=== PATIENT | female | born 1990 | race Caucasian/White ===

== ENCOUNTER → 2016-08-14 18:02 | Observation (INO) ==
--- NOTE | 2016-08-14 15:33 | OB/GYN Progress Note ---
Date of Encounter: 08/14/16 Time of Encounter: 15:28 - Assessment and Plan (1) 33 weeks gestation of Current Visit: Yes Status: Acute Discussed patient with Dr. Montgomery. BP WNL on unit. Pt denies contractions, vaginal bleeding or leaking of fluid. Pt states good movement. Will obtain [facility] labs for r/o related cause of chest pain. All labs negative. Will discharge to home Discharged home with instructions on when to call provider and return to triage for evaluation. (2) Chest pain at rest Current Visit: Yes Status: Acute STAT EKG and troponin obtained. 1558- EKG unconfirmed report shows normal sinus rhythm and normal EKG Troponin negative. Pt states all chest pain, pressure and arm pain went away soon after admission. (3) Uterine contractions during Current Visit: Yes Status: Acute Pt with contractions on monitor. Pt states does not feel contractions. Serial vaginal exams show cervix 1/long and remained unchanged. Subjective - Subjective Interval history: Patient brought to the unit from emergency department patient stated according to emergency department she felt chest congestion in her chest and was noted to have an elevated BP. Upon arrival to unit, I assessed patient and asked why patient presented to the hospital patient states she has felt chest pain and pressure on all basins arising this morning with radiation down to her left arm when she awoke she says she rated the pain 10 out of 10 however it did decrease but has continued with chest pain and pressure with continuing down her left arm. Patient states she has had a cardiac workup in the past with an echocardiogram and has been told she has an abnormal heartbeat. Unable to locate echocardiogram from 2011. Patient reports good movement, denies any contractions leaking of fluid, vaginal bleeding, or contractions Antepartum ROS: movement normal, no loss of fluid, no vaginal bleeding, no contractions Objective - Vital Signs Vital Signs: BP 117/85 - Exam Auscultation: bilateral: normal Abdomen: Present: normal appearance, soft, gravid Cervical dilation: 1 Cervix effacement: 25 station: -3
[2016-08-14 15:43] LABS: Basophils % 0.2 %; Eosinophils % 0.4 %; Hematocrit 33.6 % (35.3-44.9); Hemoglobin 11.4 g/dL (11.5-15.4); Immature Granulocytes % 0.5 % (0-4); Immature Platelets 5.8 % (1.1-6.1); Lymphocytes # 2.2 K/mcL (0.6-4.6); Lymphocytes % 22.4 %; Mean Corpuscular HGB Conc 33.9 g/dL (31.6-35.5); Mean Corpuscular Volume 79.6 fL (83.0-100.0); Mean Platelet Volume 10.2 fL (9.4-12.4); Monocytes # 0.7 K/mcL (0.0-1.3); Neutrophils # 6.7 K/mcL (1.6-8.9); Platelet Count 281 K/mcL (140-400); Red Blood Count 4.22 M/mcL (3.82-4.97); Red Cell Distribution Width 13.8 % (11.5-14.5); Segmented Neutrophils % 69.5 %
[2016-08-14 15:57] LABS: Alanine Aminotransferase 14 Units/L (0-55); Aspartate Amino Transferase 19 Units/L (5-34); BUN/Creatinine Ratio 10 (6-26); Blood Urea Nitrogen 6 mg/dL (7-20); Lactate Dehydrogenase 170 Units/L (159-327); Uric Acid 4.3 mg/dL (2.6-6.0); eGFR For African Americans > 60 (> 60); eGFR For Non-African Americans > 60 (> 60)
[~2016-08-14 18:02] MED LIST: Ringers Solution, Lactated 1,000 ML ONE
--- NOTE | 2016-08-15 17:42 | Electrocardiograph Report ---
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
== END | disposition home or self-care (01) ==
LOC: 1NENULAB
PROVIDERS: ADMIT Obstetrics & Gynecology; ATTEND Obstetrics & Gynecology

== ENCOUNTER 2016-09-23 15:23 | Observation (INO) ==
[2016-09-23 15:54] LABS: Basophils % 0.2 %; Eosinophils % 0.5 %; Hematocrit 36.2 % (35.3-44.9); Hemoglobin 12.4 g/dL (11.5-15.4); Immature Granulocytes % 0.4 % (0-4); Lymphocytes # 1.9 K/mcL (0.6-4.6); Lymphocytes % 23.6 %; Mean Corpuscular HGB Conc 34.3 g/dL (31.6-35.5); Mean Corpuscular Hemoglobin 27.3 pg (28.0-33.3); Mean Corpuscular Volume 79.7 fL (83.0-100.0); Mean Platelet Volume 10.9 fL (9.4-12.4); Monocytes # 0.6 K/mcL (0.0-1.3); Monocytes % 6.9 %; Neutrophils # 5.6 K/mcL (1.6-8.9); Platelet Count 258 K/mcL (140-400); Red Blood Count 4.54 M/mcL (3.82-4.97); Red Cell Distribution Width 14.8 % (11.5-14.5); Segmented Neutrophils % 68.4 %
[2016-09-23 16:06] LABS: Alanine Aminotransferase 13 Units/L (0-55); Aspartate Amino Transferase 20 Units/L (5-34); BUN/Creatinine Ratio 12 (6-26); Blood Urea Nitrogen 8 mg/dL (7-20); Lactate Dehydrogenase 178 Units/L (159-327); Uric Acid 5.4 mg/dL (2.6-6.0); eGFR For African Americans > 60 (> 60); eGFR For Non-African Americans > 60 (> 60)
[2016-09-23 16:50] LABS: Creatinine,Urine 14 mg/dL
[2016-09-23 16:51] LABS: Protein/Creatinine Ratio,Urine < 0.50 mg/mg (0-0.20)
--- NOTE | 2016-09-23 17:08 | Discharge Summary ---
Date of Encounter: 09/23/16 Time of Encounter: 17:10 - Discharge Diagnosis (1) 39 weeks gestation of Priority: Primary Status: Acute Comments: Patient sent over from office at 39 weeks and 3 days gestation for PIH evaluation following increase in blood pressure in office this afternoon. Patient states positive movement. She denies headache, visual disturbances, epigastric pain, vaginal bleeding, LOF, and cramping/contractions. PIH labs - wnl Serial blood pressures - normotensive NST - category I reactive NST FHTs 140s with moderate variability and 15x15 accels no decels no contractions Discharge home with labor precautions and PIH precautions F/U for scheduled IOL on Thursday with Dr Mann. POC per consult with Dr Patino - Discharge Medications Home Medications: Vits #90/Iron Fum/FA [ Formula Tablet] 1 each PO DAILY [History] Albuterol Sulfate [Albuterol Inhaler] 2 puff IN PRN PRN 09/23/16 [History] Allergies/Adverse Reactions: Allergies Amoxicillin Adverse Reaction (Verified 09/23/16 15:46) Nausea Data Procedures and tests throughout hospitalization: Laboratory Tests 09/23/16 09/23/16 09/23/16 15:42 15:42 15:42 WBC 8.2 RBC 4.54 Hgb 12.4 Hct 36.2 MCV 79.7 L MCH 27.3 L MCHC 34.3 RDW 14.8 H Plt Count 258 MPV 10.9 Immature Gran % 0.4 Seg Neutrophils % 68.4 Lymphocytes % 23.6 Monocytes % 6.9 Eosinophils % 0.5 Basophils % 0.2 Neutrophils # 5.6 Lymphocytes # 1.9 Monocytes # 0.6 Eosinophils # 0.0 Basophils # 0.0 BUN 8 Creatinine 0.69 Est GFR ( Amer) > 60 Est GFR (Non-Af Amer) > 60 BUN/Creatinine Ratio 12 Uric Acid 5.4 AST 20 ALT 13 Lactate Dehydrogenase 178 Urine Creatinine 14 Protein/Creatinin Ratio < 0.50 H Urine Total Protein < 7 Labs on day of discharge: Labs from last 24 hours 09/23/16 09/23/16 09/23/16 15:42 15:42 15:42 WBC 8.2 RBC 4.54 Hgb 12.4 Hct 36.2 MCV 79.7 L MCH 27.3 L MCHC 34.3 RDW 14.8 H Plt Count 258 MPV 10.9 Immature Gran % 0.4 Seg Neutrophils % 68.4 Lymphocytes % 23.6 Monocytes % 6.9 Eosinophils % 0.5 Basophils % 0.2 Neutrophils # 5.6 Lymphocytes # 1.9 Monocytes # 0.6 Eosinophils # 0.0 Basophils # 0.0 BUN 8 Creatinine 0.69 Est GFR ( Amer) > 60 Est GFR (Non-Af Amer) > 60 BUN/Creatinine Ratio 12 Uric Acid 5.4 AST 20 ALT 13 Lactate Dehydrogenase 178 Urine Creatinine 14 Protein/Creatinin Ratio < 0.50 H Urine Total Protein < 7 Date of admission: 09/23/16 15:23 Primary care physician: Sary Vazquez DO Discharging clinician: Sharyn Jones Anticipated date of discharge: 09/23/16 - Patient Status Disposition: Home, Self-Care Condition: Good Functional capacity at discharge: independent ambulation Overall status at discharge: patient is back to baseline - Discharge Instructions Follow Up With: Sary Vazquez DO [Primary Care Provider] - Mary Mann DO [Partnered Physician] - - Diet and Activity Activity: increase activity as tolerated Diet: regular diet Hospital Course [employer] Time Attestation: Total time spent providing and/or coordinating discharge services: Time Spent: Less than 30 minutes Exam - Constitutional General appearance IM: cooperative, A&O X 3, pleasant, no acute distress - Respiratory Respiratory exam: Present: CTAB - Cardiovascular Cardiovascular exam IM: Present: RRR, +S1, +S2 - GI/Abdominal GI/Abdominal exam IM: normal bowel sounds, soft - Rectal Rectal exam: deferred - Additional comments: Gravid, non-tender - Extremities Exam Extremities exam IM: Present: normal capillary refill, normal inspection, radial pulses palpable and symetrical - Neurological Exam Neurological exam: alert, oriented X3 - VTE Reasons for not Prescribing Prophylaxis: Treatment not Indicated - Low risk for VTE
== END 2016-09-23 17:08 | disposition home or self-care (01) ==
LOC: 1NENULAB
PROVIDERS: ADMIT Student in an Organized Health Care Education/Training Program; ATTEND Student in an Organized Health Care Education/Training Program

== ENCOUNTER 2016-09-24 18:54 | Inpatient (IN) ==
--- NOTE | 2016-09-24 19:07 | OB/GYN History & Physical ---
Date of Encounter: 09/24/16 Time of Encounter: 19:01 Assessment and Plan (1) 39 weeks gestation of Current visit: Yes Status: Acute (2) Rubella non-immune status, antepartum Current visit: Yes Status: Acute Offer vaccine . (3) Spontaneous onset of labor Current visit: Yes Status: Acute SVE on arrival 3cm. Recheck after 1 hour 4cm/90%-1 with BBOW. Admit for labor. GBS negative. Nubain x 1 now for pain. Epidural when able. Will augment with AROM if needed. Anticipate . History of Present Illness Chief complaint: contractions HPI: Ms. Sanon is a 26 year old female, who is at 39w4d, who presents to L&D triage reporting contractions that started around 1500 this afternoon. She reports that contractions are approximately 4 minutes apart lasting 1-2 minutes at this time. She reports that she was seen yesterday here for a PIH evaluation after being seen in the office then, later, was sent home. Patient denies any other problems with this . Patient denies any loss of fluid vaginally up until this time. Reports good FM today. Denies any headache, blurred vision, RUQ pain at this time. Blood type A positive. Rubella and varicella non-immune. HIV, treponema, and hepatitis B sag negative. GBS negative. Pt has a normal quad screening. Glucola 150. 3 hour GTT normal. Past Med Surg Social Fam HX - Past Medical History Medical history: asthma, hyperlipidemia Psychiatric history: no psych history - Past Surgical History Surgical History: other - Social History Smoking Status: Never smoker Smokeless Tobacco Status: No Alcohol use: none, unknown Drug use: none - Family History Mother Family Member Ethnicity: Non- Living Status: Still Living Hx Family Cardiac Disorders: Yes (high blood pressure) Hx Family Respiratory Disorders: No Hx Family Cancer: No Hx Family GI Disorders: No Hx Family Endocrine Disorder: Yes (diabetes) Hx Family Neuromuscular Disorders: No Hx Family Neurologic Disorders: No Hx Family HEENT Disorders: No Hx Family Autoimmune Disorders: No Obstetrical History - Pregnancies : 2 Para: 1 Term: 1 : 0 Ab's: 0 Livin - History/Complications History/Complications: Denies any complications with this . Although was seen for PIH evaluation yesterday and sent home. Medications and Allergies Vits #90/Iron Fum/FA [ Formula Tablet] 1 each PO DAILY [History] Albuterol Sulfate [Albuterol Inhaler] 2 puff IN PRN PRN 09/23/16 [History] Allergies Amoxicillin Adverse Reaction (Verified 09/23/16 15:46) Nausea Review of System OB - Constitutional Constitutional ROS IM: as per HPI, no chills, no fever(s) - Gastrointestinal Gastrointestinal: as per HPI - Genitourinary Genitourinary: as per HPI, no abnormal vaginal bleeding, no vaginal discharge Exam - Constitutional Constitutional: well developed, well nourished, mild distress - Neck Neck exam: full ROM - Lungs Respiratory exam: CTAB - Cardiovascular Cardiovascular exam: RRR, +S1, +S2 - Breasts Breast: bilateral: normal - Abdomen Abdomen: Present: gravid, non tender - Extremities Extremities exam: full ROM, normal capillary refill, normal inspection - Vulva Vulva: bilateral: normal - Vagina Vagina: Present: normal moisture - Cervix Dilation: 3 Effacement: 90 Station: -1 Results All other labs normal.
[2016-09-24] MEDS ORDERED: Naloxone 0.4 MG/ML INJ IVP PRN (19:51)
[2016-09-24] MEDS ORDERED: Famotidine 20 MG/2 ML VIAL IVP PRN (19:51)
[2016-09-24] MEDS ORDERED: Ondansetron 4 MG/2 ML VIAL IVP PRN (19:51)
[2016-09-24] MEDS ORDERED: *HR* Nalbuphine 20 MG/ML AMPUL IVP PRN (19:53)
[2016-09-24] MEDS ORDERED: *HR* Nalbuphine 20 MG/ML AMPUL ONE (19:53)
[2016-09-24] MEDS ORDERED: Ringers Solution, Lactated 1,000 ML ONE ×2 (19:53→21:24)
[2016-09-24] MEDS ORDERED: Ringers Solution, Lactated 1,000 ML IVC SCH (20:00)
[2016-09-24] MEDS ORDERED: EPHEDrine 50 MG/ML VIAL IVP PRN (20:20)
[2016-09-24] MEDS ORDERED: Ringers Solution, Lactated 500 ML IVC ONE (20:20)
[2016-09-24] MEDS ORDERED: Epidural Premix (fent/bupiv) 0 ML EP ONE (20:22)
[2016-09-24] MEDS ORDERED: Epidural Premix (fent/bupiv) 110 ML EP SCH (20:30)
[2016-09-24 20:32] LABS: Basophils % 0.3 %; Eosinophils % 0.2 %; Hemoglobin 13.6 g/dL (11.5-15.4); Immature Granulocytes % 0.5 % (0-4); Lymphocytes # 3.1 K/mcL (0.6-4.6); Lymphocytes % 20.4 %; Mean Corpuscular Hemoglobin 27.1 pg (28.0-33.3); Mean Corpuscular Volume 79.8 fL (83.0-100.0); Mean Platelet Volume 11.3 fL (9.4-12.4); Monocytes % 6.9 %; Neutrophils # 10.8 K/mcL (1.6-8.9); Platelet Count 271 K/mcL (140-400); Red Blood Count 5.01 M/mcL (3.82-4.97); Red Cell Distribution Width 14.8 % (11.5-14.5); Segmented Neutrophils % 71.7 %
[2016-09-24 20:33] LABS: Basophils # 0.1 K/mcL (0.0-0.2)
[2016-09-24] MEDS ORDERED: Lidocaine 1% 20 ML MDV ONE (21:24)
[2016-09-24] MEDS ORDERED: Oxytocin 20 units/ LR 1000 mL 20 UNIT/1,000 ML BAG IVC ONE ×2 (21:26→23:19)
[2016-09-24] MEDS ORDERED: Ibuprofen 600 MG TABLET PO PRN (21:42)
--- NOTE | 2016-09-24 23:14 | OB/GYN Procedure Note ---
Delivery - Delivery Date: 09/24/16 Provider: Shima Montalvo Intrapartum events: precipitous labor- <3hr Delivery induction: none Delivery monitor: external FHT, external uterine, internal FHT Anesthesia: intravenous Estimated Blood Loss: 100 - (s) Infant A Delivery Date: 09/24/16 Infant Delivery Time: 21:33 Presentation: vertex Position: ROSHNI Route of delivery: Gender: Male Viability: Viable Pounds: 7 Ounces: 10 at 1 minute: 8 at 5 mins: 8 Shoulder Dystocia: not encountered Placenta: spontaneous Cord: 3 umbilical vessels - Repair Episiotomy: none Laceration Description: Superficial (Right labial) - Complications Delivery complications: none Delivery comments: The patient progressed rapidly from 3 cm to complete and pushing without regional anesthesia with a spontaneous vaginal delivery in the ROSHNI position of a vigorous male infant weighing 7 lbs. 4oz. with Apgars of 8 at 1 minute and 8 at 5 [address] was [address] on the maternal abdomen. The cord was clamped and cut after pulsations ceased. The placenta was delivered spontaneous and intact. Superficial right labial laceration was hemostatic and not repaired. No other lacerations noted. Estimated blood loss 100 mL, complications none. Umbilical cord was noted to be modestly short. - Disposition Mom disposition: stable in LDR disposition: stable in LDR
[2016-09-25] MEDS ORDERED: Measles/Mumps/Rubella Vacc 0.5 ML VIAL SQ PRN (00:27)
[2016-09-25] MEDS ORDERED: Oxytocin 20 units/ LR 1000 mL 20 UNIT/1,000 ML BAG IVC SCH (00:27)
[2016-09-25] MEDS ORDERED: Acetaminophen 325 MG TABLET PO PRN (00:27)
[2016-09-25 04:41] LABS: Basophils % 0.1 %; Hematocrit 35.8 % (35.3-44.9); Hemoglobin 12.2 g/dL (11.5-15.4); Immature Granulocytes % 0.4 % (0-4); Lymphocytes # 1.7 K/mcL (0.6-4.6); Mean Corpuscular HGB Conc 34.1 g/dL (31.6-35.5); Mean Corpuscular Hemoglobin 27.8 pg (28.0-33.3); Mean Corpuscular Volume 81.5 fL (83.0-100.0); Mean Platelet Volume 11.7 fL (9.4-12.4); Monocytes # 0.9 K/mcL (0.0-1.3); Monocytes % 5.4 %; Neutrophils # 14.6 K/mcL (1.6-8.9); Platelet Count 201 K/mcL (140-400); Red Blood Count 4.39 M/mcL (3.82-4.97); Red Cell Distribution Width 14.6 % (11.5-14.5); Segmented Neutrophils % 84.1 %
[2016-09-25] MEDS: Ibuprofen 600 MG TABLET PO PRN ×2 (08:30→20:38)
[2016-09-25] MEDS: Prenatal Vit/FA 1 EACH TABLET PO SCH (08:31)
--- NOTE | 2016-09-25 14:19 | OB/GYN Progress Note ---
Date of Encounter: 09/25/16 Time of Encounter: 14:17 - Assessment and Plan (1) Vaginal delivery Current Visit: Yes Status: Acute stable PPD #1. Continue current management. Anticipate D/C in AM Subjective - Subjective Interval history: Pt resting comfortable in her room. Pain well managed, tolerating regular diet. Patient reports: appetite normal, voiding normally, pain well controlled, ambulating normally [place]: doing well, nursing well, bottle feeding Objective - Latest Vital Signs Latest vital signs: Vital Signs Temp Pulse Resp BP Pulse Ox 09/25/16 08:38 98.2 F 77 16 107/77 09/25/16 02:10 98.1 F 71 16 134/73 99 09/25/16 01:10 97.6 F 57 16 139/75 100 09/25/16 00:15 98.3 F 61 16 136/78 99 Intake and Output 09/24/16 09/25/16 09/25/16 23:59 07:59 15:59 Intake Total 800 / 800 240 / 240 Output Total 1400 / 1400 700 / 700 Balance -600 / -600 -460 / -460 Intake: Oral 800 / 800 240 / 240 Output: Urine 1400 / 1400 700 / 700 Other: Meal Lunch Percent of Meal Consumed 100% Weight 64.41 kg 78.789 kg Patient Weight 09/25/16 23:59 Weight 78.789 kg - Exam Lungs: bilateral: normal Chest: Normal S1, Normal S2 Extremities: Present: normal Abdomen: Present: normal appearance, soft Uterus: Present: normal - Labs Labs: Laboratory Results - last 24 hr 09/24/16 09/25/16 20:15 04:10 WBC 15.1 H D 17.3 H RBC 5.01 H 4.39 Hgb 13.6 12.2 Hct 40.0 35.8 MCV 79.8 L 81.5 L MCH 27.1 L 27.8 L MCHC 34.0 34.1 RDW 14.8 H 14.6 H Plt Count 271 201 MPV 11.3 11.7 Immature Gran % 0.5 0.4 Seg Neutrophils % 71.7 84.1 Lymphocytes % 20.4 10.0 Monocytes % 6.9 5.4 Eosinophils % 0.2 0.0 Basophils % 0.3 0.1 Neutrophils # 10.8 H 14.6 H Lymphocytes # 3.1 1.7 Monocytes # 1.0 0.9 Eosinophils # 0.0 0.0 Basophils # 0.1 0.0
[2016-09-25] MEDS ORDERED: Sennosides 8.6 MG TABLET PO PRN (20:13)
[2016-09-26] MEDS: Ibuprofen 600 MG TABLET PO PRN (04:33)
[2016-09-26 08:12] VITALS: BP 118/79
--- NOTE | 2016-09-26 08:44 | Discharge Summary ---
Date of Encounter: 09/26/16 Time of Encounter: 08:42 - Discharge Diagnosis (1) Vaginal delivery Priority: Primary Status: Acute Comments: Continue routine care discharge home today follow up with Dr. Mann in 4-6 weeks (2) Breast feeding status of mother Priority: Secondary Status: Acute Comments: support prn - Discharge Medications Prescriptions: Breast Pump [BREAST PUMP] 1 each .ROUTE AD #1 each Home Medications: Vits #90/Iron Fum/FA [ Formula Tablet] 1 each PO DAILY [History] Albuterol Sulfate [Albuterol Inhaler] 2 puff IN PRN PRN 09/23/16 [History] Breast Pump [BREAST PUMP] 1 each .ROUTE AD #1 each 09/26/16 [Rx] Vit/FA 1 each PO DAILY tablet 09/26/16 [Rx] Allergies/Adverse Reactions: Allergies Amoxicillin Adverse Reaction (Verified 09/23/16 15:46) Nausea Data Procedures and tests throughout hospitalization: Laboratory Tests 09/24/16 09/25/16 20:15 04:10 WBC 15.1 H D 17.3 H RBC 5.01 H 4.39 Hgb 13.6 12.2 Hct 40.0 35.8 MCV 79.8 L 81.5 L MCH 27.1 L 27.8 L MCHC 34.0 34.1 RDW 14.8 H 14.6 H Plt Count 271 201 MPV 11.3 11.7 Immature Gran % 0.5 0.4 Seg Neutrophils % 71.7 84.1 Lymphocytes % 20.4 10.0 Monocytes % 6.9 5.4 Eosinophils % 0.2 0.0 Basophils % 0.3 0.1 Neutrophils # 10.8 H 14.6 H Lymphocytes # 3.1 1.7 Monocytes # 1.0 0.9 Eosinophils # 0.0 0.0 Basophils # 0.1 0.0 Date of admission: 09/24/16 18:54 Primary care physician: Sary Vazquez DO Consults: 09/25/16 00:27 Consult to [employer]mer [CONS] Routine Comment: Vaginal delivery, consult needed Discharging clinician: Madie Iglesias Anticipated date of discharge: 09/26/16 - Patient Status Disposition: Home, Self-Care Condition: Good Functional capacity at discharge: independent ambulation - Discharge Instructions Follow Up With: Sary Vazquez DO [Primary Care Provider] - Mary Mann DO [Partnered Physician] - - Diet and Activity Activity: increase activity as tolerated Diet: regular diet Hospital Course Reason for admission: induction of labor Delivery: Episiotomy: none Other procedures: none complications: none Discharge diagnosis: IUP at term delivered baby: male (breast feeding) Time Attestation: Total time spent providing and/or coordinating discharge services: Time Spent: Less than 30 minutes Exam - Constitutional Vitals: Temp Pulse Resp BP Pulse Ox 98.0 F 78 16 118/79 98 09/26/16 08:11 09/26/16 08:11 09/26/16 08:11 09/26/16 08:11 09/25/16 20:38 General appearance IM: A&O X 3, pleasant, answers questions appropriately - Respiratory Respiratory exam: Present: CTAB - Cardiovascular Cardiovascular exam IM: Present: RRR, +S1, +S2 - GI/Abdominal GI/Abdominal exam IM: normal bowel sounds - Uterine Tone: Firm Uterus Position: 1 Finger Below Umbilicus, Midline - Extremities Exam Extremities exam IM: Present: full ROM, normal capillary refill, normal inspection - Neurological Exam Neurological exam: alert, oriented X3, reflexes normal
[2016-09-26] MEDS: Prenatal Vit/FA 1 EACH TABLET PO SCH (08:59)
== END 2016-09-26 16:45 | disposition home or self-care (01) | DRG 560 ==
LOC: 1NENULAB → OBSVTOIN 18:54 → 1NENUOBS 09-25 00:17
PROVIDERS: ADMIT Obstetrics & Gynecology; ATTEND Obstetrics & Gynecology

== ENCOUNTER 2020-05-16 19:35 | Inpatient (IN) ==
[2020-05-16 20:18] LABS: Basophils # 0.1 K/mcL (0.0-0.2); Basophils % 0.6 %; Eosinophils % 0.1 %; Hematocrit 37.5 % (35.3-44.9); Hemoglobin 12.3 g/dL (11.5-15.4); Immature Granulocytes % 0.3 % (0-4); Lymphocytes # 2.8 K/mcL (0.6-4.6); Lymphocytes % 19.8 %; Mean Corpuscular HGB Conc 32.8 g/dL (31.6-35.5); Mean Corpuscular Volume 79.3 fL (83.0-100.0); Mean Platelet Volume 9.7 fL (9.4-12.4); Monocytes # 1.2 K/mcL (0.0-1.3); Monocytes % 8.2 %; Neutrophils # 10.1 K/mcL (1.6-8.9); Platelet Count 460 K/mcL (140-400); Red Blood Count 4.73 M/mcL (3.82-4.97); White Blood Count 14.2 K/mcL (4.3-11.1)
[2020-05-16 20:19] LABS: Bacteria,Urine Few per hpf (None-Few); Bilirubin,Urine Negative (Negative); Blood,Urine Large (Negative); Clarity,Urine Turbid (Clear); Color,Urine Light-Orange (Yellow); Glucose,Urine (UA) 30 mg/dL (Normal); Ketones,Urine 60 mg/dL (Negative); Leukocyte Esterase,Urine Trace (Negative); Mucus,Urine Many per lpf (None-Few); Nitrite,Urine Negative (Negative); Protein,Urine >=300 mg/dL (Neg-Trace); RBC,Urine TNTC per hpf (0-3); Specific Gravity,Urine > 1.030 (1.010-1.025); Squamous Epithelial Cell,Urine Many per hpf (None-Few); WBC,Urine 30-50 per hpf (0-3)
[2020-05-16 20:23] LABS: Estimated Average Glucose 105 mg/dl; Hemoglobin A1C 5.3 %
[2020-05-16 20:27] LABS: Amphetamine Screen,Urine Negative ng/mL (Cutoff=1000); Barbiturate Screen,Urine Negative ng/mL (Cutoff=200); Benzodiazepines Screen,Urine Negative ng/mL (Cutoff=200); Cannabinoid Screen,Urine Negative ng/mL (Cutoff = 50); Cocaine Screen,Urine Negative ng/mL (Cutoff= 300); Opiate Screen,Urine Negative ng/mL (Cutoff=300); Phencyclidine Screen,Urine Negative ng/mL (Cutoff=25)
[2020-05-16] MEDS ORDERED: cephALEXin 250 MG CAPSULE PO ONE (20:33)
[2020-05-16 20:40] LABS: Acetaminophen < 10 mcg/mL (10-20); BUN/Creatinine Ratio 9 (6-26); Blood Urea Nitrogen 7 mg/dL (6-20); Calcium 9.5 mg/dL (8.6-10.3); Carbon Dioxide 24 mEq/L (23-29); Chloride 104 mEq/L (98-107); Chol/HDL Ratio 3.8 (0-4.9); Cholesterol 175 mg/dL (< 200); Ethanol < 10 mg/dL (Less than 10); Glucose 135 mg/dL (70-105); HDL Cholesterol 46 mg/dL (40-59); LDL Cholesterol,Calculated 118 mg/dL (< 100); Osmolality,Calculated 288 (280-300); Potassium 2.8 mEq/L (3.5-5.1); Salicylate < 2.5 mg/dL (15.0-30.0); Sodium 139 mEq/L (136-145); Triglycerides 55 mg/dL (< 150); eGFR For African Americans > 60 (> 60); eGFR For Non-African Americans > 60 (> 60)
[2020-05-16] MEDS ORDERED: Potassium Chloride Elixir 20 MEQ/15 ML UDC PO ONE (20:42)
[2020-05-16 20:53] LABS: Thyroid Stimulating Hormone 0.719 mcIU/mL (0.340-5.600)
[2020-05-17] MEDS ORDERED: *HR* LORazepam 1 MG TABLET PO PRN (02:23)
[2020-05-17] MEDS ORDERED: Haloperidol Lactate 5 MG/ML VIAL IM PRN (02:23)
[2020-05-17] MEDS ORDERED: haloperidoL 5 MG TABLET PO PRN (02:23)
[2020-05-17] MEDS ORDERED: MOM Conc 10 ML UD.LIQ PO PRN (02:23)
[2020-05-17] MEDS ORDERED: traZODone 50 MG TABLET PO PRN (02:23)
[2020-05-17] MEDS ORDERED: *HR* LORazepam 2 MG/ML VIAL IM PRN (02:23)
[2020-05-17] MEDS: hydrOXYzine pamoate 25 MG CAPSULE PO PRN ×2 (08:07→20:50)
[2020-05-17] MEDS: cephALEXin 500 MG CAPSULE PO SCH ×2 (08:07→20:50)
[2020-05-17] MEDS ORDERED: QUEtiapine Fumarate 25 MG TABLET PO PRN (10:23)
[2020-05-17] MEDS: ARIPiprazole 5 MG TABLET PO SCH (11:27)
[2020-05-17] MEDS ORDERED: QUEtiapine Fumarate 25 MG TABLET PO SCH (21:00)
[2020-05-18] MEDS: cephALEXin 500 MG CAPSULE PO SCH ×2 (09:13→20:30)
[2020-05-18] MEDS: ARIPiprazole 5 MG TABLET PO SCH (09:13)
[2020-05-18] MEDS: QUEtiapine Fumarate 100 MG TABLET PO SCH (20:30)
[2020-05-18] MEDS: hydrOXYzine pamoate 25 MG CAPSULE PO PRN (20:30)
[2020-05-19] MEDS: ARIPiprazole 10 MG TABLET PO SCH (08:25)
[2020-05-19] MEDS: cephALEXin 500 MG CAPSULE PO SCH ×2 (08:25→21:02)
[2020-05-19] MEDS: QUEtiapine Fumarate 100 MG TABLET PO SCH (21:02)
[2020-05-19] MEDS: hydrOXYzine pamoate 25 MG CAPSULE PO PRN (21:02)
[2020-05-20] MEDS: cephALEXin 500 MG CAPSULE PO SCH ×2 (08:26→20:38)
[2020-05-20] MEDS: ARIPiprazole 10 MG TABLET PO SCH (08:26)
[2020-05-20] MEDS: Acetaminophen 325 MG TABLET PO PRN (18:15)
[2020-05-20] MEDS: hydrOXYzine pamoate 25 MG CAPSULE PO PRN (20:37)
[2020-05-20] MEDS: QUEtiapine Fumarate 100 MG TABLET PO SCH (20:37)
[2020-05-21 00:58] LABS: Bacteria,Urine Few per hpf (None-Few); Bilirubin,Urine Negative (Negative); Blood,Urine Large (Negative); Calcium Oxalate Crystals,Urine Present; Clarity,Urine Clear (Clear); Color,Urine Colorless (Yellow); Glucose,Urine (UA) Normal (Normal); Hyaline Casts,Urine Few per lpf (None Seen); Ketones,Urine Negative (Negative); Leukocyte Esterase,Urine Trace (Negative); Mucus,Urine Many per lpf (None-Few); Nitrite,Urine Negative (Negative); Protein,Urine Trace mg/dL (Neg-Trace); RBC,Urine TNTC per hpf (0-3); Specific Gravity,Urine 1.016 (1.010-1.025); Squamous Epithelial Cell,Urine Few per hpf (None-Few); Urobilinogen,Urine Normal (Normal)
[2020-05-21] MEDS: ARIPiprazole 10 MG TABLET PO SCH (08:55)
[2020-05-21] MEDS: Mag Hydrox/Al Hydrox/Simeth 30 ML UDC PO PRN (08:58)
[2020-05-21] MEDS: cephALEXin 500 MG CAPSULE PO SCH ×2 (09:22→20:43)
[2020-05-21] MEDS: hydrOXYzine pamoate 25 MG CAPSULE PO PRN (20:43)
[2020-05-21] MEDS: QUEtiapine Fumarate 100 MG TABLET PO SCH (20:43)
[2020-05-22] MEDS: ARIPiprazole 10 MG TABLET PO SCH (08:59)
[2020-05-22] MEDS: Sulfamethoxazole/Trimeth DS 1 EACH TABLET PO SCH ×2 (10:55→21:04)
[2020-05-22] MEDS: Acetaminophen 325 MG TABLET PO PRN (11:19)
[2020-05-22] MEDS: QUEtiapine Fumarate 100 MG TABLET PO SCH (21:04)
[2020-05-22] MEDS: hydrOXYzine pamoate 25 MG CAPSULE PO PRN (21:04)
[2020-05-22 21:11] LABS: Bilirubin,Urine Negative (Negative); Blood,Urine Large (Negative); Clarity,Urine Turbid (Clear); Color,Urine Yellow (Yellow); Glucose,Urine (UA) Normal (Normal); Ketones,Urine 40 mg/dL (Negative); Leukocyte Esterase,Urine Trace (Negative); Mucus,Urine Few per lpf (None-Few); Nitrite,Urine Negative (Negative); PH,Urine 6.5 pH Units (5.0-8.0); Protein,Urine 70 mg/dL (Neg-Trace); RBC,Urine TNTC per hpf (0-3); Specific Gravity,Urine > 1.030 (1.010-1.025); Squamous Epithelial Cell,Urine Moderate per hpf (None-Few); Urobilinogen,Urine Normal (Normal)
[2020-05-23] MEDS: ARIPiprazole 10 MG TABLET PO SCH (08:51)
[2020-05-23] MEDS: Sulfamethoxazole/Trimeth DS 1 EACH TABLET PO SCH ×2 (08:51→21:11)
[2020-05-23] MEDS: ARIPiprazole 5 MG TABLET PO SCH (10:01)
[2020-05-23] MEDS: Acetaminophen 325 MG TABLET PO PRN (18:20)
[2020-05-23] MEDS: QUEtiapine Fumarate 100 MG TABLET PO SCH (21:11)
[2020-05-23] MEDS: hydrOXYzine pamoate 25 MG CAPSULE PO PRN (21:11)
[2020-05-24] MEDS: Sulfamethoxazole/Trimeth DS 1 EACH TABLET PO SCH ×2 (08:27→20:19)
[2020-05-24] MEDS: ARIPiprazole 5 MG TABLET PO SCH (08:28)
[2020-05-24] MEDS: ARIPiprazole 10 MG TABLET PO SCH (08:28)
[2020-05-24] MEDS ORDERED: FLU Vac QV 20-21 (6Month+)/PF 0.5 ML SYRINGE IM ONE (11:41)
[2020-05-24] MEDS: hydrOXYzine pamoate 25 MG CAPSULE PO PRN (12:39)
[2020-05-24] MEDS: QUEtiapine Fumarate 100 MG TABLET PO SCH (20:19)
[2020-05-24] MEDS: Mag Hydrox/Al Hydrox/Simeth 30 ML UDC PO PRN (20:20)
[2020-05-25 08:25] VITALS: BP 134/84
[2020-05-25] MEDS: ARIPiprazole 5 MG TABLET PO SCH (08:28)
[2020-05-25] MEDS: ARIPiprazole 10 MG TABLET PO SCH (08:28)
[2020-05-25] MEDS: Sulfamethoxazole/Trimeth DS 1 EACH TABLET PO SCH (08:28)
== END 2020-05-25 12:55 | disposition home or self-care (01) | DRG 751 ==
LOC: EMEROOARM 19:35 → 1ANU 05-17 02:21
PROVIDERS: ADMIT Psychiatry & Neurology Psychiatry; ATTEND Psychiatry & Neurology Psychiatry